=== PATIENT | female | born 1940 | race Caucasian/White ===

== ENCOUNTER → 2017-04-19 05:00 | Outpatient (REF) | payer MEDICARE, SELFPAY ==
[2017-04-19 08:24] LABS: Hematocrit 40.2 % (37-47); Hemoglobin 12.3 g/dl (12.0-15.0); Mean Corp Hgb Conc 30.6 g/gl (32-36); Mean Corpuscular Hgb 29.2 pg (27.0-32.0); Mean Corpuscular Volume 95.5 fL (81-99); Mean Platelet Vol. 9.3 fl (6.2-12.0); Platelet Count 247 K/mm3 (150-450); RBC Distribution Width CV 14.6 % (11.6-14.6); RBC Distribution Width SD 50.9 fl (35.1-43.9); Red Blood Count 4.21 M/mm3 (4.2-5.4); White Blood Count 5.7 K/mm3 (4.4-11.0)
[2017-04-19 08:31] LABS: Anion Gap 8 (5-15); BUN 18 mg/dL (7-18); BUN/Creat Ratio 33.7 RATIO (10-20); Calcium,Total 9.3 mg/dL (8.5-10.1); Chloride 99 mmol/L (98-107); Creatinine, Serum 0.53 mg/dL (0.55-1.02); EST Glomerular Filtration Rate 118 mL/min (>60); Est Glom Filt Rate - Afr Amer 143 mL/min (>60); Glucose 96 mg/dL (74-106); Potassium 3.2 mmol/L (3.5-5.1); Sodium Level 137 mmol/L (136-145)
[2017-04-19 08:36] LABS: Scan Indicated on CBC? Y/N NO
== END ==
LOC: OLS.ACW100 05:00
PROVIDERS: Visit Provider Internal Medicine
DX: I63.22 Cerebral infarction due to unspecified occlusion or stenosis of basilar artery (principal); I69.320 Aphasia following cerebral infarction; I69.351 Hemiplegia and hemiparesis following cerebral infarction affecting right dominant side
CPT/HCPCS: 36415; 80048; 85027

== ENCOUNTER → 2017-04-20 03:00 | Outpatient (REF) | payer MEDICARE, SELFPAY ==
[2017-04-20 07:39] LABS: Color, Urine Yellow (Yellow); Glucose, Dipstick Normal (Normal); Ketone-Dipstick Negative (Negative); Leukocyte Esterase-Dipstick 500 /ul (Negative); Nitrite-Dipstick Positive (Negative); Occult Blood-Urine 25 /ul (Negative); Protein-Dipstick 15 mg/dl (Negative); Urine Bilirubin Dipstick Negative (Negative); Urine Clarity Clear (Clear); Urine Urobilinogen Normal (Normal)
== END ==
LOC: OLS.ACW100 03:00
PROVIDERS: Visit Provider Internal Medicine
DX: I63.22 Cerebral infarction due to unspecified occlusion or stenosis of basilar artery (principal); N39.0 Urinary tract infection, site not specified; I69.320 Aphasia following cerebral infarction; I69.351 Hemiplegia and hemiparesis following cerebral infarction affecting right dominant side
CPT/HCPCS: 81002; 87077; 87086; 87088; 87186

== ENCOUNTER → 2017-05-09 13:14 | Outpatient (REF) | payer MEDICARE, SELFPAY ==
[2017-05-09 13:33] LABS: Color, Urine Yellow (Yellow); Glucose, Dipstick Normal (Normal); Ketone-Dipstick Negative (Negative); Leukocyte Esterase-Dipstick Negative /ul (Negative); Nitrite-Dipstick Negative (Negative); Occult Blood-Urine Negative /ul (Negative); Protein-Dipstick Negative (Negative); Specific Gravity, Urine 1.015 (1.002-1.030); Urine Bilirubin Dipstick Negative (Negative); Urine Clarity Cloudy (Clear); Urine Urobilinogen Normal (Normal)
== END ==
LOC: OLS.ACW200 13:14
PROVIDERS: Visit Provider Internal Medicine
DX: Z09 Encounter for follow-up examination after completed treatment for conditions other than malignant neoplasm (principal); Z87.440 Personal history of urinary (tract) infections
CPT/HCPCS: 81002; 87086; 87088

== ENCOUNTER → 2017-05-20 03:00 | Outpatient (REF) | payer MEDICARE, SELFPAY ==
[2017-05-20 08:36] LABS: Color, Urine Yellow (Yellow); Glucose, Dipstick Normal (Normal); Ketone-Dipstick Negative (Negative); Leukocyte Esterase-Dipstick Negative /ul (Negative); Nitrite-Dipstick Negative (Negative); Occult Blood-Urine Negative /ul (Negative); Protein-Dipstick Negative (Negative); Urine Bilirubin Dipstick Negative (Negative); Urine Clarity Sl. Cloudy (Clear); Urine Urobilinogen Normal (Normal)
== END ==
LOC: OLS.ACW200 03:00
PROVIDERS: Visit Provider Internal Medicine
DX: I63.22 Cerebral infarction due to unspecified occlusion or stenosis of basilar artery (principal); I69.320 Aphasia following cerebral infarction; I69.351 Hemiplegia and hemiparesis following cerebral infarction affecting right dominant side; R41.82 Altered mental status, unspecified
CPT/HCPCS: 81002; 87086; 87088

== ENCOUNTER → 2017-05-24 05:00 | Outpatient (REF) | payer MEDICARE, SELFPAY ==
[2017-05-24 08:06] LABS: Hematocrit 42.1 % (37-47); Hemoglobin 13.5 g/dl (12.0-15.0); Mean Corp Hgb Conc 32.1 g/gl (32-36); Mean Corpuscular Hgb 29.6 pg (27.0-32.0); Mean Corpuscular Volume 92.3 fL (81-99); Mean Platelet Vol. 9.7 fl (6.2-12.0); Platelet Count 246 K/mm3 (150-450); RBC Distribution Width CV 13.8 % (11.6-14.6); RBC Distribution Width SD 45.1 fl (35.1-43.9); Red Blood Count 4.56 M/mm3 (4.2-5.4); White Blood Count 6.6 K/mm3 (4.4-11.0)
[2017-05-24 08:07] LABS: Scan Indicated on CBC? Y/N NO
[2017-05-24 08:08] LABS: Anion Gap 9 (5-15); BUN 13 mg/dL (7-18); BUN/Creat Ratio 27.1 RATIO (10-20); Calcium,Total 9.1 mg/dL (8.5-10.1); Chloride 103 mmol/L (98-107); Creatinine, Serum 0.48 mg/dL (0.55-1.02); EST Glomerular Filtration Rate 134 mL/min (>60); Est Glom Filt Rate - Afr Amer 162 mL/min (>60); Glucose 81 mg/dL (74-106); Potassium 3.1 mmol/L (3.5-5.1); Sodium Level 141 mmol/L (136-145)
== END ==
LOC: OLS.ACW200 05:00
PROVIDERS: Visit Provider Internal Medicine
DX: I69.351 Hemiplegia and hemiparesis following cerebral infarction affecting right dominant side (principal); I69.320 Aphasia following cerebral infarction
CPT/HCPCS: 36415; 80048; 85027

== ENCOUNTER → 2017-05-31 05:00 | Outpatient (REF) | payer MEDICARE, SELFPAY ==
[2017-05-31 08:33] LABS: Color, Urine Yellow (Yellow); Glucose, Dipstick Normal (Normal); Ketone-Dipstick Negative (Negative); Leukocyte Esterase-Dipstick Negative /ul (Negative); Nitrite-Dipstick Negative (Negative); Occult Blood-Urine Negative /ul (Negative); Protein-Dipstick Negative (Negative); Urine Bilirubin Dipstick Negative (Negative); Urine Clarity Sl. Cloudy (Clear); Urine Urobilinogen Normal (Normal)
== END ==
LOC: OLS.ACW100 05:00
PROVIDERS: Visit Provider Internal Medicine
DX: I63.22 Cerebral infarction due to unspecified occlusion or stenosis of basilar artery (principal); I69.320 Aphasia following cerebral infarction; I69.351 Hemiplegia and hemiparesis following cerebral infarction affecting right dominant side
CPT/HCPCS: 81002; 87086; 87088

== ENCOUNTER → 2018-02-07 05:00 | Outpatient (REF) | payer MEDICARE, SELFPAY ==
[2018-02-07 09:12] LABS: BUN 26 mg/dL (7-18); Creatinine, Serum 0.66 mg/dL (0.55-1.02); Glucose 92 mg/dL (74-106)
[2018-02-07 09:13] LABS: Anion Gap 9 (5-15); BUN/Creat Ratio 39.3 RATIO (10-20); Chloride 106 mmol/L (98-107); EST Glomerular Filtration Rate 92 mL/min (>60); Est Glom Filt Rate - Afr Amer 111 mL/min (>60); Potassium 3.7 mmol/L (3.5-5.1); Sodium Level 144 mmol/L (136-145)
--- OUTSIDE RECORDS SUMMARY | 2018-03-25 23:39 | XMS RPT_ITS ---
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 / I69.351(ICD-10) 11/30/2017 Unknown Z09 - Encounter Spoljaric, Active [place] for follow-up [facility] examination after Hospital completed Repository treatment for conditions other than malignant neoplasm / Z09(ICD-10) 11/30/2017 Unknown Z87.440 - Spoljaric, Active Jerad Personal history [facility] (tract) Repository infections / Z87.440(ICD-10) PROCEDURES PROCEDURES No Procedure Records FoundRESULTS RESULTS URINALYSIS, ROUTINE Collected: 03/12/2018 Status: F Source: JERAD (DIPSTICK) 2:00 PM [facility] REPOSITORY Order Comment: How was Urine Obtained? CLEAN CATCH TYPE CODE TESTS RESULT OUT OF RANGE REFERENCE UNITS LAB L400.3000 Yellow COLOR Normal Yellow LAB L400.3050 Clear Normal CLARITY Sl. Cloudy LAB L400.3200 Normal mg/dl Normal GLUCOSE, UR Normal LAB L400.3300 Negative mg/dL Normal BILIRUBIN URINE Negative LAB L400.3400 Negative mg/dl Normal KETONE UR Negative LAB L400.3465 1.002-1.030 Normal SP.GR. DIPSTX 1.020 LAB L400.3550 5.0 - 8.0 pH UR Normal 6.0 LAB L400.3600 Negative mg/dl High PROT 15 DIPSTX LAB L400.3700 Normal mg/dl Normal UROBILI Normal LAB L400.3750 Negative Normal NITRITE UR Negative LAB L400.3780 Negative /ul High 10 OCCULT BLOOD-UR LAB L400.3800 Negative /ul High LEUK ESTERASE 100 Performed By: #### L400.2010 #### [facility] [address] [place], [place], [address] Observed: 03/12/2018 Status: F Source: [place] CULTURE, URINE 2:00 PM [facility] REPOSITORY COLLECTED IN [facility] Urine Culture #2 There are no CLSI standards for interpretation of this Drug/Organism combination. ORGANISM 1: Citrobacter freundii [place] Count 25,000-50,000 ORGANISM 2: Aerococcus urinae [place] Count >100,000 Citrobacter freundii: REACTION Cefazolin $ >=64 R Cefepime $ <=0.12 S Ceftazidime *NF <=1 S Ceftriaxone $ <=0.25 S Ciprofloxacin $ <=0.25 S Ertapenim $$$ <=0.12 S Gentamicin $ <=1 S Imipenem *NF <=0.25 S Levofloxacin $ <=0.12 S Nitrofurantoin $ <=16 S Piperacillin/Tazobactam $$ <=4 S Tobramycin $ <=1 S Trimethoprim/Sulfametho $ <=20 S (NF) indicates non-formulary drug at [facility]. Approval by Infectious Disease Specialist required before non-formulary drugs may be ordered and/or dispensed. Performed By: #### M100.0650 #### [facility] [address] [place], [address] BASIC METABOLIC Collected: 02/07/2018 Status: F Source: [place] PROFILE (BMP) 6:40 AM [facility] REPOSITORY Order Comment: 110-1 TYPE CODE TESTS RESULT OUT OF RANGE REFERENCE UNITS LAB L501.0100 74-106 mg/dL Normal GLU 92 Result Comment: Please note revised GLUCOSE reference range effective 2017. LAB L501.1000 7-18 mg/dL High BUN 26 LAB L501.1100 0.55-1.02 mg/dL Normal CREAT,SERUM 0.66 Result Comment: The validity of the calculated GFR AND GFRAA in patients over 70 years has not been determined. Clinical correlation is essential. LAB L501.1110 >60 mL/min Normal EST GFR 92 Result Comment: Non- GFR Calc LAB L501.1115 >60 mL/min Normal EST GFR - AA 111 Result Comment: GFR Calc LAB L501.1300 10-20 RATIO High BUN/CRE 39.3 LAB L501.2200 8.5-10.1 mg/dL CA Normal 9.0 LAB L501.5300 136-145 mmol/L NA Normal 144 LAB L501.5600 3.5-5.1 mmol/L K Normal 3.7 LAB L501.5900 98-107 mmol/L CL Normal 106 LAB L501.6100 21.0-32.0 mmol/L Normal CO2 29.0 LAB L501.6200 5-15 Normal GAP 9 Performed By: #### L500.2500 #### [facility] [address] [place], [place], [address] URINALYSIS, ROUTINE Collected: 05/31/2017 Status: F Source: JERAD (DIPSTICK) 12:00 AM [facility] REPOSITORY Order Comment: How was Urine Obtained? CLEAN CATCH TYPE CODE TESTS RESULT OUT OF RANGE REFERENCE UNITS LAB L400.3000 Yellow COLOR Normal Yellow LAB L400.3050 Clear Normal CLARITY Sl. Cloudy LAB L400.3200 Normal mg/dl Normal GLUCOSE, UR Normal LAB L400.3300 Negative mg/dL Normal BILIRUBIN URINE Negative LAB L400.3400 Negative mg/dl Normal KETONE UR Negative LAB L400.3465 1.002-1.030 Normal SP.GR. DIPSTX 1.010 LAB L400.3550 5.0 - 8.0 pH UR Normal 7.0 LAB L400.3600 Negative mg/dl PROT Normal DIPSTX Negative LAB L400.3700 Normal mg/dl Normal UROBILI Normal LAB L400.3750 Negative Normal NITRITE UR Negative LAB L400.3780 Negative /ul Normal OCCULT BLOOD-UR Negative LAB L400.3800 Negative /ul LEUK Normal ESTERASE Negative Performed By: #### L400.2010 #### [facility] [address] [place], [place], [address] Observed: 05/31/2017 Status: F Source: [place] CULTURE, URINE 12:00 AM [facility] REPOSITORY Urine Culture ORGANISM 1: Mixed Gram Positive Organisms [place] Count 11,000-25,000 MIX CULTURE Mixed contaminants. Submit a new specimen if indicated. Performed By: #### M100.0650 #### [facility] [address] [place], [place], [address] CBC-COMPLETE BLOOD CNT Collected: 05/24/2017 Status: F Source: [place]ER[place] NO DIFF 5:40 AM [facility] REPOSITORY Order Comment: ROOM 102-1 TYPE CODE TESTS RESULT OUT OF RANGE REFERENCE UNITS LAB L100.1000 4.4-11.0 K/mm3 Normal WBC 6.6 LAB L100.1200 4.2-5.4 M/mm3 Normal RBC 4.56 LAB L100.1300 12.0-15.0 g/dl Normal HGB 13.5 LAB L100.1400 37-47 % Normal HCT 42.1 LAB L100.1500 81-99 fL Normal MCV 92.3 LAB L100.1600 27.0-32.0 pg Normal MCH 29.6 LAB L100.1700 32-36 g/gl Normal MCHC 32.1 LAB L100.1810 11.6-14.6 % Normal RDW CV 13.8 LAB L100.1820 35.1-43.9 fl High RDW SD 45.1 LAB L100.1900 150-450 K/mm3 Normal PLT 246 LAB L100.2000 6.2-12.0 fl Normal MPV 9.7 Performed By: #### L100.0500 #### [facility] [address] [place], [place], [address] BASIC METABOLIC Collected: 05/24/2017 Status: F Source: [place]ER[place] PROFILE (BMP) 5:40 AM [facility] REPOSITORY Order Comment: ROOM 102-1 TYPE CODE TESTS RESULT OUT OF RANGE REFERENCE UNITS LAB L501.0100 74-106 mg/dL Normal GLU 81 Result Comment: Please note revised GLUCOSE reference range effective 2017. LAB L501.1000 7-18 mg/dL Normal BUN 13 LAB L501.1100 0.55-1.02 mg/dL Low CREAT,SERUM 0.48 Result Comment: The validity of the calculated GFR AND GFRAA in patients over 70 years has not been determined. Clinical correlation is essential. LAB L501.1110 >60 mL/min Normal EST GFR 134 Result Comment: Non- GFR Calc LAB L501.1115 >60 mL/min Normal EST GFR - AA 162 Result Comment: GFR Calc LAB L501.1300 10-20 RATIO High BUN/CRE 27.1 LAB L501.2200 8.5-10.1 mg/dL CA Normal 9.1 LAB L501.5300 136-145 mmol/L NA Normal 141 LAB L501.5600 3.5-5.1 mmol/L Low K 3.1 LAB L501.5900 98-107 mmol/L CL Normal 103 LAB L501.6100 21.0-32.0 mmol/L Normal CO2 29.0 LAB L501.6200 5-15 Normal GAP 9 Performed By: #### L500.2500 #### [facility] [place], [address] URINALYSIS, ROUTINE Collected: 05/20/2017 Status: F Source: JERAD (DIPSTICK) 3:00 AM [facility] REPOSITORY Order Comment: How was Urine Obtained? CLEAN CATCH TYPE CODE TESTS RESULT OUT OF RANGE REFERENCE UNITS LAB L400.3000 Yellow COLOR Normal Yellow LAB L400.3050 Clear Normal CLARITY Sl. Cloudy LAB L400.3200 Normal mg/dl Normal GLUCOSE, UR Normal LAB L400.3300 Negative mg/dL Normal BILIRUBIN URINE Negative LAB L400.3400 Negative mg/dl Normal KETONE UR Negative LAB L400.3465 1.002-1.030 Normal SP.GR. DIPSTX 1.010 LAB L400.3550 5.0 - 8.0 pH UR Normal 6.0 LAB L400.3600 Negative mg/dl PROT Normal DIPSTX Negative LAB L400.3700 Normal mg/dl Normal UROBILI Normal LAB L400.3750 Negative Normal NITRITE UR Negative LAB L400.3780 Negative /ul Normal OCCULT BLOOD-UR Negative LAB L400.3800 Negative /ul LEUK Normal ESTERASE Negative Performed By: #### L400.2010 #### [facility] [address] [place], [place], [address] Observed: 05/20/2017 Status: F Source: [place] CULTURE, URINE 3:00 AM [facility] REPOSITORY Urine Culture ORGANISM 1: Mixed Gram Positive Organisms [place] Count 11,000-25,000 MIX CULTURE Mixed contaminants. Submit a new specimen if indicated. Performed By: #### M100.0650 #### [facility] [place], [address] URINALYSIS, ROUTINE Collected: 05/09/2017 Status: F Source: JERAD (DIPSTICK) 12:00 AM [facility] REPOSITORY Order Comment: How was Urine Obtained? CLEAN CATCH TYPE CODE TESTS RESULT OUT OF RANGE REFERENCE UNITS LAB L400.3000 Yellow COLOR Normal Yellow LAB L400.3050 Clear Normal CLARITY Cloudy LAB L400.3200 Normal mg/dl Normal GLUCOSE, UR Normal LAB L400.3300 Negative mg/dL Normal BILIRUBIN URINE Negative LAB L400.3400 Negative mg/dl Normal KETONE UR Negative LAB L400.3465 1.002-1.030 Normal SP.GR. DIPSTX 1.015 LAB L400.3550 5.0 - 8.0 pH UR Normal 6.0 LAB L400.3600 Negative mg/dl PROT Normal DIPSTX Negative LAB L400.3700 Normal mg/dl Normal UROBILI Normal LAB L400.3750 Negative Normal NITRITE UR Negative LAB L400.3780 Negative /ul Normal OCCULT BLOOD-UR Negative LAB L400.3800 Negative /ul LEUK Normal ESTERASE Negative Performed By: #### L400.2010 #### [facility] [address] [facility] [place], [address] Observed: 05/09/2017 Status: F Source: [place]ER[place] CULTURE, URINE 12:00 AM [facility] REPOSITORY Urine Culture ORGANISM 1: Mixed Gram Positive Organisms [place] Count 25,000-50,000 MIX CULTURE Mixed contaminants. Submit a new specimen if indicated. Performed By: #### M100.0650 #### [facility] [address] [place], [address] URINALYSIS, ROUTINE Collected: 04/20/2017 Status: F Source: JERAD (DIPSTICK) 3:00 AM [facility] REPOSITORY Order Comment: How was Urine Obtained? CLEAN CATCH TYPE CODE TESTS RESULT OUT OF RANGE REFERENCE UNITS LAB L400.3000 Yellow COLOR Normal Yellow LAB L400.3050 Clear Normal CLARITY Clear LAB L400.3200 Normal mg/dl Normal GLUCOSE, UR Normal LAB L400.3300 Negative mg/dL Normal BILIRUBIN URINE Negative LAB L400.3400 Negative mg/dl Normal KETONE UR Negative LAB L400.3465 1.002-1.030 Normal SP.GR. DIPSTX 1.020 LAB L400.3550 5.0 - 8.0 pH UR Normal 6.0 LAB L400.3600 Negative mg/dl High PROT 15 DIPSTX LAB L400.3700 Normal mg/dl Normal UROBILI Normal LAB L400.3750 Negative High NITRITE UR Positive LAB L400.3780 Negative /ul High 25 OCCULT BLOOD-UR LAB L400.3800 Negative /ul High [place] ESTERASE 500 Performed By: #### L400.2011 #### [facility] [address] [place], [address] Observed: 04/20/2017 Status: F Source: [place]ER[place] CULTURE, URINE 3:00 AM [facility] REPOSITORY Urine Culture * This is an amended result. * A prior result that was reported as final has been changed. 05/10/17 1516 by JUAN J Previously reported as: SALMONELLA INFANTIS IDENTIFICATION CONFIRMED BY [facility]. RESULTS CALLED TO DEVIN CARVALHO 04/23/17 0818 Meredith Levine. REPORT READ BACK BY SAME. ORGANISM 1: Salmonella Species [place] Count >100,000 Salmonella Species: REACTION Amoxacillin/Clavulanic Acid $ >=32 R Ampicillin $ >=32 R Cefepime $ <=1 S Ceftriaxone $ >=64 R Ciprofloxacin $ 0.5 S Levofloxacin $ 2 S Tobramycin $ <=1 R Trimethoprim/Sulfametho $ <=20 S (NF) indicates non-formulary drug at [facility]. Approval by Infectious Disease Specialist required before non-formulary drugs may be ordered and/or dispensed. Performed By: #### M100.0650 #### [facility] [address] [place], [place], [address] BASIC METABOLIC Collected: 04/19/2017 Status: F Source: JERAD PROFILE (BMP) 5:55 AM [facility] REPOSITORY Order Comment: ROOM 114-1 TYPE CODE TESTS RESULT OUT OF RANGE REFERENCE UNITS LAB L501.0100 74-106 mg/dL Normal GLU 96 Result Comment: Please note revised GLUCOSE reference range effective 2017. LAB L501.1000 7-18 mg/dL Normal BUN 18 LAB L501.1100 0.55-1.02 mg/dL Low CREAT,SERUM 0.53 Result Comment: The validity of the calculated GFR AND GFRAA in patients over 70 years has not been determined. Clinical correlation is essential. LAB L501.1110 >60 mL/min Normal EST GFR 118 Result Comment: Non- GFR Calc LAB L501.1115 >60 mL/min Normal EST GFR - AA 143 Result Comment: GFR Calc LAB L501.1300 10-20 RATIO High BUN/CRE 33.7 LAB L501.2200 8.5-10.1 mg/dL CA Normal 9.3 LAB L501.5300 136-145 mmol/L NA Normal 137 LAB L501.5600 3.5-5.1 mmol/L Low K 3.2 LAB L501.5900 98-107 mmol/L CL Normal 99 LAB L501.6100 21.0-32.0 mmol/L Normal CO2 30.0 LAB L501.6200 5-15 Normal GAP 8 Performed By: #### L500.2500 #### [facility] [address] [place], [address] CBC-COMPLETE BLOOD CNT Collected: 04/19/2017 Status: F Source: [place]ER[place] NO DIFF 5:55 AM [facility] REPOSITORY Order Comment: ROOM 114-1 TYPE CODE TESTS RESULT OUT OF RANGE REFERENCE UNITS LAB L100.1000 4.4-11.0 K/mm3 Normal WBC 5.7 LAB L100.1200 4.2-5.4 M/mm3 Normal RBC 4.21 LAB L100.1300 12.0-15.0 g/dl Normal HGB 12.3 LAB L100.1400 37-47 % Normal HCT 40.2 LAB L100.1500 81-99 fL Normal MCV 95.5 LAB L100.1600 27.0-32.0 pg Normal MCH 29.2 LAB L100.1700 32-36 g/gl Low MCHC 30.6 LAB L100.1810 11.6-14.6 % Normal RDW CV 14.6 LAB L100.1820 35.1-43.9 fl High RDW SD 50.9 LAB L100.1900 150-450 K/mm3 Normal PLT 247 LAB L100.2000 6.2-12.0 fl Normal MPV 9.3 Performed By: #### L100.0500 #### [facility] [address] [place], [address] ALLERGIES ALLERGIES DATE TYPE / CODE NAME / CODE REACTION SEVERITY SOURCE 02/15/2017 Drug diphenhydram Unknown Unknown [facility] Allergy/4160 ine/[id number] [facility] 38911(SNOMED 87(RXNORM) Repository [place]) ENCOUNTERS ENCOUNTERS ADMIT/DISCHARGE ACCOUNT ADMITTING ENCOUNTER LOCATION SOURCE NUMBER CLASS 03/12/2018 [id number] [place] [facility] ing:OLS.ACW10 Repository 0 02/07/2018 [id number] [place] [facility] ing:OLS.ACW10 Repository 0 05/31/2017 [id number] Ambulatory [place] [facility] [facility] ing:OLS.ACW10 Repository 0 05/30/2017 [id number] Ambulatory [place] [facility] ing:OLS.ACW20 Repository 0 05/24/2017 [id number] [place] [facility] ing:OLS.ACW20 Repository 0 05/20/2017 [id number] Ambulatory [place] [facility] ing:OLS.ACW20 Repository 0 05/09/2017 [id number] Ambulatory [place] [facility] ing:OLS.ACW20 Repository 0 04/20/2017 [id number] Amb[place] [facility] ing:OLS.ACW10 Repository 0 04/19/2017 [id number] Ambulatory [place] [facility] [facility] ing:OLS.ACW10 Repository 0 PAYERS PAYERS ENCOUNTER GUARANTOR PAYER SUBSCRIBER SOURCE 03/12/2018 Isma Rodriguez Primary NOT GIVENUNK [place] Insurance:SELF PAY [facility], Number: Effective Repository [place] [address]Qiu: (330) Date:2018-03-12 [phone] () 02/07/2018 Isma Forte147 Primary Isma J [place] Insurance:ANTHEM YarmanDOB: [facility] [id number] [place] [address]Zri: (330) Number: [phone] () [id number] e Date:2832-46-02[address] [place] [address]CN: 02/07/2018 Secondary NOT GIVENUNK [place] Insurance:SELF PAY [facility] Number: Effective Repository Date:2018-02-07 05/31/2017 Isma Forte147 Primary Isma J [place] Insurance:[facility]M [facility] [id number] [place] [address]Bfw: (330) Number: [phone] () [id number] e Date:1048-40-87YI [address] [place] [address]QN: 05/31/2017 Secondary NOT GIVENUNK [place] Insurance:SELF PAY [facility] Number: Effective Repository Date:2017-05-31 05/30/2017 ISMA [id number] Primary [facility]IVENUNK [facility]SELF [facility] [place] [address]Ecy: (330) [facility] [phone] (HP) Number: Effective Repository Date:2017-05-30 05/24/2017 Isma [id number] Primary Isma J Jer[place] Insurance:ANTHEM LizzetteOB: [facility] [id number] [place] [address]Jvi: Number: [phone] [id number] () e Date:5640-58-13SM [address] [place] [address]XQ: 05/24/2017 Secondary NOT GIVENUNK [place] Insurance:SELF PAY [facility] Number: Effective Repository Date:2017-05-24 05/20/2017 Ismajanis [id number] Primary Isma J [place] Insurance:ANTHEMMA CrockerOB: [facility] [id number] Rep[place] [address]Moq: Number: [phone] [id number] (HP) e Date:1969-81-15RJ [address] [place] [address]UC: 05/20/2017 Secondary NOT GIVENUNK Jerad Insurance:SELF PAY [facility] Number: Effective Repository Date:2017-05-20 05/09/2017 Isma Violet [id number] Primary Isma J [place] Insurance:SILVIA CrockerOB: [facility] [id number] [place] [address]Umy: (330) Number: [phone] () [id number] e Date:9175-92-93ST [address] [place] [address]YJ: 05/09/2017 Secondary NOT GIVENUNK [place] Insurance:SELF PAY [facility] Number: Effective Repository Date:2017-05-09 04/20/2017 Isma J [id number] Primary Isma J [place] Insurance:SILVIA CrockerOB: [facility] [id number] [facility] [address]Gsn: Number: [phone] [id number] (HP) e Date:1939-34-72ZM [address] [place] [address] [place] [address]WM: 04/20/2017 Secondary NOT GIVENUNK [place] Insurance:SELF PAY [facility] Number: Effective Repository Date:2017-04-20 04/19/2017 Ismajanis [id number] Primary Isma J [place] Insurance:SILVIA CrockerOB: [facility] [id number] [place] [address]Upy: Number: [phone] [id number] (HP) e Date:4461-54-41[address], [place] [address]CC: 04/19/2017 Secondary NOT GIVENUNK [place] Insurance:SELF PAY [facility] Number: Effective Repository Date:2017-04-19
== END ==
LOC: OLS.ACW100 05:00
PROVIDERS: Visit Provider Internal Medicine
DX: I69.320 Aphasia following cerebral infarction (principal); I69.351 Hemiplegia and hemiparesis following cerebral infarction affecting right dominant side
CPT/HCPCS: 36415; 80048

== ENCOUNTER → 2018-03-12 14:00 | Outpatient (REF) | payer MEDICARE, SELFPAY ==
[2018-03-13 10:10] LABS: Color, Urine Yellow (Yellow); Glucose, Dipstick Normal (Normal); Ketone-Dipstick Negative (Negative); Leukocyte Esterase-Dipstick 100 /ul (Negative); Nitrite-Dipstick Negative (Negative); Occult Blood-Urine 10 /ul (Negative); Protein-Dipstick 15 mg/dl (Negative); Urine Bilirubin Dipstick Negative (Negative); Urine Clarity Sl. Cloudy (Clear); Urine Urobilinogen Normal (Normal)
--- OUTSIDE RECORDS SUMMARY | 2018-05-18 01:31 | XMS RPT_ITS ---
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 / I69.351(ICD-10) 11/30/2017 Unknown Z09 - Encounter Spoljaric, Active [place] for follow-up [facility] examination after Hospital completed Repository treatment for conditions other than malignant neoplasm / Z09(ICD-10) 11/30/2017 Unknown Z87.440 - Spoljaric, Active [place] Personal history [facility] (tract) Repository infections / Z87.440(ICD-10) PROCEDURES PROCEDURES No Procedure Records FoundRESULTS RESULTS URINALYSIS, ROUTINE Collected: 03/12/2018 Status: F Source: JERAD (DIPSTICK) 2:00 PM [facility] Order Comment: How was Urine Obtained? [...] ESTERASE 100 Performed By: #### L400.2010 #### [facility] [address] [place], [place], [address] Observed: 03/12/2018 Status: F Source: BETHEL CULTURE, URINE 2:00 PM [facility] COLLECTED IN [facility] Urine Culture #2 There are no CLSI standards for interpretation of this Drug/Organism combination. ORGANISM 1: Citrobacter freundii [place] Count 25,000-50,000 ORGANISM 2: Aerococcus urinae [place] Count >100,000 Citrobacter freundii: REACTION Cefazolin $ >=64 R Cefepime $ <=0.12 S Ceftazidime *NF <=1 S Ceftriaxone $ <=0.25 S Ciprofloxacin $ <=0.25 S Ertapenim $$$ <=0.12 S Gentamicin $ <=1 S Imipenem *NF <=0.25 S Levofloxacin $ <=0.12 S Nitrofurantoin $ <=16 S Piperacillin/Tazobactam $$ <=4 S Tobramycin $ <=1 S Trimethoprim/Sulfametho $ <=20 S (NF) indicates non-formulary drug at [facility]. Approval by Infectious Disease Specialist required before non-formulary drugs may be ordered and/or dispensed. Performed By: #### M100.0650 #### [facility] [address] [place], [address] BASIC METABOLIC Collected: 02/07/2018 Status: F Source: JERAD PROFILE (BMP) 6:40 AM [facility] Order Comment: 110-1 TYPE CODE TESTS [...] GAP 9 Performed By: #### L500.2500 #### [facility] [address] [place], [place], [address] URINALYSIS, ROUTINE Collected: 05/31/2017 Status: F Source: JERAD (DIPSTICK) 12:00 AM [facility] Order Comment: How was Urine Obtained? [...] ESTERASE Negative Performed By: #### L400.2010 #### [facility] [address] [place], [place], [address] Observed: 05/31/2017 Status: F Source: JERAD CULTURE, URINE 12:00 AM [facility] Urine Culture ORGANISM 1: Mixed Gram Positive Organisms [place] Count 11,000-25,000 MIX CULTURE Mixed contaminants. Submit a new specimen if indicated. Performed By: #### M100.0650 #### [facility] [address] [place], [place], [address] CBC-COMPLETE BLOOD CNT Collected: 05/24/2017 Status: F Source: JERAD NO DIFF 5:40 AM [facility] Order Comment: ROOM 102-1 TYPE CODE [...] MPV 9.7 Performed By: #### L100.0500 #### [facility] [address] [place], [place], [address] BASIC METABOLIC Collected: 05/24/2017 Status: F Source: JERAD PROFILE (BMP) 5:40 AM [facility] Order Comment: ROOM 102-1 TYPE CODE [...] GAP 9 Performed By: #### L500.2500 #### [facility] [address], [address] URINALYSIS, ROUTINE Collected: 05/20/2017 Status: F Source: JERAD (DIPSTICK) 3:00 AM [facility] Order Comment: How was Urine Obtained? [...] ESTERASE Negative Performed By: #### L400.2010 #### [facility] [address] [place], [place], [address] Observed: 05/20/2017 Status: F Source: JERAD CULTURE, URINE 3:00 AM [facility] Urine Culture ORGANISM 1: Mixed Gram Positive Organisms [place] Count 11,000-25,000 MIX CULTURE Mixed contaminants. Submit a new specimen if indicated. Performed By: #### M100.0650 #### [facility] [place], [address] URINALYSIS, ROUTINE Collected: 05/09/2017 Status: F Source: JERAD (DIPSTICK) 12:00 AM [facility] Order Comment: How was Urine Obtained? [...] ESTERASE Negative Performed By: #### L400.2010 #### [facility] [address] [facility], [address] Observed: 05/09/2017 Status: F Source: JERAD CULTURE, URINE 12:00 AM [facility] Urine Culture ORGANISM 1: Mixed Gram Positive Organisms [place] Count 25,000-50,000 MIX CULTURE Mixed contaminants. Submit a new specimen if indicated. Performed By: #### M100.0650 #### [facility] [address] [place], [address] URINALYSIS, ROUTINE Collected: 04/20/2017 Status: F Source: JERAD (DIPSTICK) 3:00 AM [facility] Order Comment: How was Urine Obtained? [...] ESTERASE 500 Performed By: #### L400.2011 #### [facility] [address] [place], [address] Observed: 04/20/2017 Status: F Source: JERAD CULTURE, URINE 3:00 AM [facility] Urine Culture * This is an amended result. * A prior result that was reported as final has been changed. 05/10/17 1516 by JUAN J Previously reported as: SALMONELLA INFANTIS IDENTIFICATION CONFIRMED BY [facility]. RESULTS CALLED TO DEVIN CARVALHO 04/23/17 0818 Meredith Levine. REPORT READ BACK BY SAME. ORGANISM 1: Salmonella Species [place] Count >100,000 Salmonella Species: REACTION Amoxacillin/Clavulanic Acid $ >=32 R Ampicillin $ >=32 R Cefepime $ <=1 S Ceftriaxone $ >=64 R Ciprofloxacin $ 0.5 S Levofloxacin $ 2 S Tobramycin $ <=1 R Trimethoprim/Sulfametho $ <=20 S (NF) indicates non-formulary drug at [facility]. Approval by Infectious Disease Specialist required before non-formulary drugs may be ordered and/or dispensed. Performed By: #### M100.0650 #### [facility] [address] [place], [place], [address] BASIC METABOLIC Collected: 04/19/2017 Status: F Source: JERAD PROFILE (BMP) 5:55 AM [facility] Order Comment: ROOM 114-1 TYPE CODE [...] GAP 8 Performed By: #### L500.2500 #### [facility] [address] [place], [address] CBC-COMPLETE BLOOD CNT Collected: 04/19/2017 Status: F Source: JERAD NO DIFF 5:55 AM [facility] Order Comment: ROOM 114-1 TYPE CODE [...] MPV 9.3 Performed By: #### L100.0500 #### [facility] [address] [place], [address] ALLERGIES ALLERGIES DATE TYPE / CODE NAME / CODE REACTION SEVERITY SOURCE 02/15/2017 Drug diphenhydram Unknown Unknown [facility] Allergy/4160 ine/[id number] [facility] 24495(SNOMED 87(RXNORM) Repository [place]) ENCOUNTERS ENCOUNTERS ADMIT/DISCHARGE ACCOUNT ADMITTING ENCOUNTER LOCATION SOURCE NUMBER CLASS 03/12/2018 [id number] Ambulatory [place] 5 [facility] ing:OLS.ACW10 Repository 0 02/07/2018 [id number] Ambulatory [place] 9 [facility] ing:OLS.ACW10 Repository 0 05/31/2017 [id number] Ambulatory [place] 2 [facility] ing:OLS.ACW10 Repository 0 05/30/2017 [id number] Ambulatory [place] 7 [facility] ing:OLS.ACW20 Repository 0 05/24/2017 [id number] Ambulatory [place] 5 [facility] ing:OLS.ACW20 Repository 0 05/20/2017 [id number] Ambulatory [place] 4 [facility] ing:OLS.ACW20 Repository 0 05/09/2017 [id number] Ambulatory [place] 8 [facility] ing:OLS.ACW20 Repository 0 04/20/2017 [id number] Ambulatory [place] 8 [facility] ing:OLS.ACW10 Repository 0 04/19/2017 [id number] Ambulatory [place] 8 [facility] ing:OLS.ACW10 Repository 0 PAYERS PAYERS ENCOUNTER GUARANTOR PAYER SUBSCRIBER SOURCE 03/12/2018 Isma Rodriguez Primary NOT GIVENUNK [place]STINA Insurance:SELF PAY [facility], Number: Effective [place]ository [place] [address]Wex: (330) Date:2018-03-12 [phone] () 02/07/2018 Isma Forte147 Primary Isma J [place] Insurance:ANTHEM YarmanDOB: Community [facility] [id number] [place] [place] [address]Ayh: (330) Number: [phone] () [id number] e Date:9064-81-79JD [address] [place] [address]EX: 02/07/2018 Secondary NOT GIVENUNK [place] Insurance:SELF PAY [facility] Number: Effective Repository Date:2018-02-07 05/31/2017 Isma Forte147 Primary Isma J [place] Insurance:ANTHEM [facility] [id number] Community Hospital [place] [address]Fcb: (330) Number: [phone] () [id number] e Date:4104-45-90SI [address] [place] [address]58[address]LI: 05/31/2017 Secondary NOT GIVENUNK [place] Insurance:SELF PAY [facility] Number: Effective Repository Date:2017-05-31 05/30/2017 ISMA FORTE129 Primary NOT GIVENUNK [place] [facility]SELF [facility] [place] [address]Ocx: (330) [facility] [phone] (HP) Number: Effective Repository Date:2017-05-30 05/24/2017 Isma [id number] Primary Isma J Jer[place] Insurance:ANTHEM LizzetteOB: Community [facility] [id number] Community [facility] [place]ository [place] [address]Zze: Number: [phone] [id number] () e Date:0880-36-56JJ [address] [place] [address] 109[address]KD: 05/24/2017 Secondary NOT GIVENUNK [place] Insurance:SELF PAY [facility] Number: Effective Repository Date:2017-05-24 05/20/2017 Ismajanis [id number] Primary Isma J [place] Insurance:ANTHEMMA CrockerOB: Community [facility] [id number] Community Hospital [place] [address]Uyy: Number: [phone] [id number] (HP) e Date:4391-62-03FH [address] [place] [address]PL: 05/20/2017 Secondary NOT GIVENUNK [place] Insurance:SELF PAY [facility] Number: Effective Repository Date:2017-05-20 05/09/2017 Isma Violet [id number] Primary Isma J [place] Insurance:SILVIA CrockerOB: Community [facility] [id number] Community Hospital [place] [address]Syf: (330) Number: [phone] () [id number] e Date:7605-86-83LU [address] [place] [address]WP: 05/09/2017 Secondary NOT GIVENUNK [place] Insurance:SELF PAY [facility] Number: Effective Repository Date:2017-05-09 04/20/2017 Isma J [id number] Primary Isma J [place] Insurance:SILVIA CrockerOB: Community [facility] [id number] Health [facility] [address]Aqb: Number: [phone] [id number] (HP) e Date:4532-01-64TX [address] [place] [address] [place] [address]BV: 04/20/2017 Secondary NOT GIVENUNK [place] Insurance:SELF PAY [facility] Number: Effective Repository Date:2017-04-20 04/19/2017 Ismajanis [id number] Primary Isma J Jer[place] MONTR[place] Insurance:SILVIA CrockerOB: Community [facility] [id number] Community Hospital [place] [address]Qnt: Number: [phone] [id number] (HP) e Date:8913-38-12[address], [place] [address]ED: 04/19/2017 Secondary NOT GIVENUNK [place] Insurance:SELF PAY [facility] Number: Effective Repository Date:2017-04-19
== END ==
LOC: OLS.ACW100 14:00
PROVIDERS: Visit Provider Internal Medicine
DX: I63.22 Cerebral infarction due to unspecified occlusion or stenosis of basilar artery (principal); I69.320 Aphasia following cerebral infarction; I69.351 Hemiplegia and hemiparesis following cerebral infarction affecting right dominant side
CPT/HCPCS: 81002; 87077; 87086; 87088; 87186

== ENCOUNTER → 2018-05-17 05:00 | Outpatient (REF) | payer MEDICARE, SELFPAY ==
[2018-05-17 08:22] LABS: Anion Gap 4 (5-15); BUN 22 mg/dL (7-18); Calcium,Total 8.9 mg/dL (8.5-10.1); Chloride 104 mmol/L (98-107); Creatinine, Serum 0.85 mg/dL (0.55-1.02); EST Glomerular Filtration Rate 69 mL/min (>60); Est Glom Filt Rate - Afr Amer 84 mL/min (>60); Glucose 105 mg/dL (74-106); Sodium Level 137 mmol/L (136-145)
== END ==
LOC: OLS.ACW100 05:00
PROVIDERS: Visit Provider Internal Medicine
DX: I63.22 Cerebral infarction due to unspecified occlusion or stenosis of basilar artery (principal); I69.320 Aphasia following cerebral infarction; I69.351 Hemiplegia and hemiparesis following cerebral infarction affecting right dominant side
CPT/HCPCS: 36415; 80048

== ENCOUNTER → 2018-06-24 04:00 | Outpatient (REF) | payer MEDICARE, SELFPAY ==
[2018-06-24 09:34] LABS: Anion Gap 9 (5-15); BUN 21 mg/dL (7-18); BUN/Creat Ratio 31.1 RATIO (10-20); Calcium,Total 9.1 mg/dL (8.5-10.1); Chloride 105 mmol/L (98-107); Creatinine, Serum 0.68 mg/dL (0.55-1.02); EST Glomerular Filtration Rate 90 mL/min (>60); Est Glom Filt Rate - Afr Amer 108 mL/min (>60); Glucose 102 mg/dL (74-106); Potassium 3.6 mmol/L (3.5-5.1); Sodium Level 141 mmol/L (136-145)
== END ==
LOC: OLS.ACW100 04:00
PROVIDERS: Visit Provider Internal Medicine
DX: I63.22 Cerebral infarction due to unspecified occlusion or stenosis of basilar artery (principal); I69.320 Aphasia following cerebral infarction; I69.351 Hemiplegia and hemiparesis following cerebral infarction affecting right dominant side
CPT/HCPCS: 36415; 80048

== ENCOUNTER → 2018-12-23 05:00 | Outpatient (REF) | payer MEDICARE, SELFPAY ==
[2018-12-23 08:01] LABS: Anion Gap 7 (5-15); BUN 25 mg/dL (7-18); BUN/Creat Ratio 39.9 RATIO (10-20); Calcium,Total 8.8 mg/dL (8.5-10.1); Chloride 108 mmol/L (98-107); Creatinine, Serum 0.63 mg/dL (0.55-1.02); EST Glomerular Filtration Rate 98 mL/min (>60); Est Glom Filt Rate - Afr Amer 118 mL/min (>60); Glucose 113 mg/dL (74-106); Sodium Level 141 mmol/L (136-145)
== END ==
LOC: OLS.ACW100 05:00
PROVIDERS: Visit Provider Internal Medicine
DX: I63.22 Cerebral infarction due to unspecified occlusion or stenosis of basilar artery (principal); I69.320 Aphasia following cerebral infarction; I69.351 Hemiplegia and hemiparesis following cerebral infarction affecting right dominant side
CPT/HCPCS: 36415; 80048

== ENCOUNTER → 2019-06-23 05:00 | Outpatient (REF) | payer MEDICARE, SELFPAY ==
[2019-06-23 08:20] LABS: Anion Gap 6 (5-15); BUN 25 mg/dL (7-18); BUN/Creat Ratio 35.3 RATIO (10-20); Calcium,Total 9.2 mg/dL (8.5-10.1); Chloride 105 mmol/L (98-107); Creatinine, Serum 0.71 mg/dL (0.55-1.02); EST Glomerular Filtration Rate 85 mL/min (>60); Est Glom Filt Rate - Afr Amer 102 mL/min (>60); Glucose 107 mg/dL (74-106); Potassium 3.8 mmol/L (3.5-5.1); Sodium Level 138 mmol/L (136-145)
== END ==
LOC: OLS.ACW100 05:00
PROVIDERS: Visit Provider Internal Medicine
DX: I63.22 Cerebral infarction due to unspecified occlusion or stenosis of basilar artery (principal); I69.320 Aphasia following cerebral infarction; I69.351 Hemiplegia and hemiparesis following cerebral infarction affecting right dominant side
CPT/HCPCS: 36415; 80048

== ENCOUNTER → 2019-08-14 07:40 | Outpatient (REF) | payer MEDICARE, SELFPAY ==
[2019-08-14 09:02] LABS: ALB/GLOB Ratio 0.8 RATIO (0.9-2.4); AST(SGOT) 19 U/L (15-37); Alanine Aminotransfer ALT/SGPT 30 U/L (13-56); Albumin, Serum 3.1 g/dL (3.2-5.0); Alkaline Phosphatase 131 U/L (45-117); Anion Gap 7 (5-15); BUN 17 mg/dL (7-18); BUN/Creat Ratio 25.4 RATIO (10-20); Calcium,Total 9.1 mg/dL (8.5-10.1); Chloride 103 mmol/L (98-107); Creatinine, Serum 0.67 mg/dL (0.55-1.02); EST Glomerular Filtration Rate 90 mL/min (>60); Est Glom Filt Rate - Afr Amer 109 mL/min (>60); Globulin 3.9 g/dL (2.2-4.2); Glucose 105 mg/dL (74-106); Potassium 3.7 mmol/L (3.5-5.1); Sodium Level 138 mmol/L (136-145)
== END ==
LOC: OLS.ACW100 07:40
PROVIDERS: Visit Provider Internal Medicine
DX: I63.22 Cerebral infarction due to unspecified occlusion or stenosis of basilar artery (principal); I69.320 Aphasia following cerebral infarction; I69.351 Hemiplegia and hemiparesis following cerebral infarction affecting right dominant side
CPT/HCPCS: 36415; 80053

== ENCOUNTER → 2019-10-30 05:00 | Outpatient (REF) | payer MEDICARE, SELFPAY ==
[2019-10-30 08:10] LABS: Anion Gap 6 (5-15); BUN 24 mg/dL (7-18); BUN/Creat Ratio 36.5 RATIO (10-20); Calcium,Total 8.9 mg/dL (8.5-10.1); Chloride 103 mmol/L (98-107); Creatinine, Serum 0.66 mg/dL (0.55-1.02); EST Glomerular Filtration Rate 92 mL/min (>60); Est Glom Filt Rate - Afr Amer 112 mL/min (>60); Glucose 95 mg/dL (74-106); Potassium 3.8 mmol/L (3.5-5.1); Sodium Level 136 mmol/L (136-145)
== END ==
LOC: OLS.ACW100 05:00
PROVIDERS: Visit Provider Internal Medicine
DX: I63.22 Cerebral infarction due to unspecified occlusion or stenosis of basilar artery (principal); I69.320 Aphasia following cerebral infarction; I69.351 Hemiplegia and hemiparesis following cerebral infarction affecting right dominant side
CPT/HCPCS: 36415; 80048

== ENCOUNTER → 2019-12-12 11:36 | Outpatient (REF) | payer MEDICARE, SELFPAY | LOC: OLS.ACW100 11:36 | PROVIDERS: Visit Provider Internal Medicine | DX: Z03.818 Encounter for observation for suspected exposure to other biological agents ruled out (principal) | CPT/HCPCS: 87635; U0003 ==

== ENCOUNTER → 2019-12-18 12:17 | Outpatient (REF) | payer MEDICARE, SELFPAY | LOC: OLS.ACW100 12:17 | PROVIDERS: Referring Provider Internal Medicine; Visit Provider Internal Medicine | DX: Z03.818 Encounter for observation for suspected exposure to other biological agents ruled out (principal) | CPT/HCPCS: 87635; U0003 ==

== ENCOUNTER → 2019-12-22 04:00 | Outpatient (REF) | payer MEDICARE, SELFPAY ==
[2019-12-22 08:54] LABS: Anion Gap 9 (5-15); BUN 22 mg/dL (7-18); BUN/Creat Ratio 33.6 RATIO (10-20); Calcium,Total 8.9 mg/dL (8.5-10.1); Chloride 101 mmol/L (98-107); Creatinine, Serum 0.65 mg/dL (0.55-1.02); EST Glomerular Filtration Rate 93 mL/min (>60); Est Glom Filt Rate - Afr Amer 112 mL/min (>60); Glucose 92 mg/dL (74-106); Potassium 3.7 mmol/L (3.5-5.1); Sodium Level 138 mmol/L (136-145)
== END ==
LOC: OLS.ACW100 04:00
PROVIDERS: Referring Provider Internal Medicine; Visit Provider Internal Medicine
DX: I63.22 Cerebral infarction due to unspecified occlusion or stenosis of basilar artery (principal); I69.320 Aphasia following cerebral infarction; I69.351 Hemiplegia and hemiparesis following cerebral infarction affecting right dominant side
CPT/HCPCS: 36415; 80048

== ENCOUNTER → 2020-02-04 14:42 | Outpatient (REF) | payer MEDICARE, SELFPAY | LOC: OLS.ACW100 14:42 | PROVIDERS: Referring Provider Family Medicine; Visit Provider Family Medicine | DX: Z03.818 Encounter for observation for suspected exposure to other biological agents ruled out (principal) | CPT/HCPCS: 87635; U0003 ==

== ENCOUNTER → 2020-03-22 05:00 | Outpatient (REF) | payer MEDICARE, SELFPAY ==
[2020-03-22 08:10] LABS: ALB/GLOB Ratio 0.8 RATIO (0.9-2.4); AST(SGOT) 20 U/L (15-37); Alanine Aminotransfer ALT/SGPT 31 U/L (13-56); Albumin, Serum 2.9 g/dL (3.2-5.0); Alkaline Phosphatase 130 U/L (45-117); Anion Gap 9 (5-15); BUN 24 mg/dL (7-18); BUN/Creat Ratio 46.7 RATIO (10-20); Calcium,Total 8.8 mg/dL (8.5-10.1); Chloride 105 mmol/L (98-107); Creatinine, Serum 0.51 mg/dL (0.55-1.02); EST Glomerular Filtration Rate 122 mL/min (>60); Est Glom Filt Rate - Afr Amer 148 mL/min (>60); Globulin 3.8 g/dL (2.2-4.2); Glucose 93 mg/dL (74-106); Potassium 3.7 mmol/L (3.5-5.1); Protein, Total 6.7 g/dL (6.4-8.2); Sodium Level 139 mmol/L (136-145)
== END ==
LOC: OLS.ACW300 05:00
PROVIDERS: Referring Provider Family Medicine; Visit Provider Family Medicine
DX: I63.22 Cerebral infarction due to unspecified occlusion or stenosis of basilar artery (principal); J18.9 Pneumonia, unspecified organism; I69.320 Aphasia following cerebral infarction; I69.351 Hemiplegia and hemiparesis following cerebral infarction affecting right dominant side
CPT/HCPCS: 36415; 80053

== ENCOUNTER → 2020-05-04 05:00 | Outpatient (REF) | payer MEDICARE, SELFPAY ==
[2020-05-04 08:16] LABS: ALB/GLOB Ratio 0.8 RATIO (0.9-2.4); AST(SGOT) 14 U/L (15-37); Alanine Aminotransfer ALT/SGPT 23 U/L (13-56); Albumin, Serum 2.9 g/dL (3.2-5.0); Alkaline Phosphatase 137 U/L (45-117); Anion Gap 4 (5-15); BUN 24 mg/dL (7-18); BUN/Creat Ratio 42.4 RATIO (10-20); Calcium,Total 8.9 mg/dL (8.5-10.1); Chloride 107 mmol/L (98-107); Creatinine, Serum 0.57 mg/dL (0.55-1.02); EST Glomerular Filtration Rate 109 mL/min (>60); Est Glom Filt Rate - Afr Amer 132 mL/min (>60); Globulin 3.8 g/dL (2.2-4.2); Glucose 93 mg/dL (74-106); Potassium 3.6 mmol/L (3.5-5.1); Protein, Total 6.7 g/dL (6.4-8.2); Sodium Level 140 mmol/L (136-145); Valproic Acid (Depakene) Level < 3 ug/mL (50-100)
== END ==
LOC: OLS.ACW300 05:00
PROVIDERS: Referring Provider Family Medicine; Visit Provider Family Medicine
DX: I63.22 Cerebral infarction due to unspecified occlusion or stenosis of basilar artery (principal); J18.9 Pneumonia, unspecified organism; I69.320 Aphasia following cerebral infarction; I69.351 Hemiplegia and hemiparesis following cerebral infarction affecting right dominant side
CPT/HCPCS: 36415; 80053; 80164

== ENCOUNTER → 2020-05-27 05:00 | Outpatient (REF) | payer MEDICARE, SELFPAY ==
[2020-05-27 07:59] LABS: Valproic Acid (Depakene) Level < 3 ug/mL (50-100)
== END ==
LOC: OLS.ACW300 05:00
PROVIDERS: Visit Provider Family Medicine
DX: I63.22 Cerebral infarction due to unspecified occlusion or stenosis of basilar artery (principal); J18.9 Pneumonia, unspecified organism; I69.320 Aphasia following cerebral infarction; I69.351 Hemiplegia and hemiparesis following cerebral infarction affecting right dominant side
CPT/HCPCS: 36415; 80164

== ENCOUNTER → 2020-08-26 05:00 | Outpatient (REF) | payer MEDICARE, SELFPAY ==
[2020-08-26 09:22] LABS: Valproic Acid (Depakene) Level 18 ug/mL (50-100)
== END ==
LOC: OLS.ACW300 05:00
PROVIDERS: Referring Provider Family Medicine; Visit Provider Family Medicine
DX: I63.22 Cerebral infarction due to unspecified occlusion or stenosis of basilar artery (principal); J18.9 Pneumonia, unspecified organism; I69.320 Aphasia following cerebral infarction; I69.351 Hemiplegia and hemiparesis following cerebral infarction affecting right dominant side
CPT/HCPCS: 36415; 80164

== ENCOUNTER → 2020-11-05 05:00 | Outpatient (REF) | payer MEDICARE, SELFPAY ==
[2020-11-05 09:06] LABS: AST(SGOT) 19 U/L (15-37); Alanine Aminotransfer ALT/SGPT 33 U/L (13-56); Albumin, Serum 2.6 g/dL (3.2-5.0); Alkaline Phosphatase 144 U/L (45-117); Bilirubin, Direct 0.05 mg/dL (0.00-0.30); Cholesterol 239 mg/dL (200); Globulin 4.3 g/dL (2.2-4.2); High Density Lipoprotein 30 mg/dL; Protein, Total 6.9 g/dL (6.4-8.2); Triglycerides 195 mg/dL; Very Low Density Lipoprotein 39 mg/dL (5-40)
== END ==
LOC: OLS.ACW300 05:00
PROVIDERS: Visit Provider Family Medicine
DX: I63.22 Cerebral infarction due to unspecified occlusion or stenosis of basilar artery (principal); J18.9 Pneumonia, unspecified organism; I69.320 Aphasia following cerebral infarction; I69.351 Hemiplegia and hemiparesis following cerebral infarction affecting right dominant side; I10 Essential (primary) hypertension; D50.9 Iron deficiency anemia, unspecified; H40.9 Unspecified glaucoma; F32.9 Major depressive disorder, single episode, unspecified; M62.81 Muscle weakness (generalized); Z93.1 Gastrostomy status
CPT/HCPCS: 36415; 80061; 80076

== ENCOUNTER → 2020-11-26 05:00 | Outpatient (REF) | payer MEDICARE, SELFPAY ==
[2020-11-26 10:07] LABS: Valproic Acid (Depakene) Level 24 ug/mL (50-100)
== END ==
LOC: OLS.ACW300 05:00
PROVIDERS: Visit Provider Family Medicine
DX: I63.22 Cerebral infarction due to unspecified occlusion or stenosis of basilar artery (principal); J18.9 Pneumonia, unspecified organism; I69.320 Aphasia following cerebral infarction; I69.351 Hemiplegia and hemiparesis following cerebral infarction affecting right dominant side
CPT/HCPCS: 36415; 80164

== ENCOUNTER → 2021-02-24 05:00 | Outpatient (REF) | payer MEDICARE, SELFPAY ==
[2021-02-24 09:02] LABS: Valproic Acid (Depakene) Level 26 ug/mL (50-100)
== END ==
LOC: OLS.ACW300 05:00
PROVIDERS: Visit Provider Family Medicine
DX: I63.22 Cerebral infarction due to unspecified occlusion or stenosis of basilar artery (principal); F01.51 Vascular dementia, unspecified severity, with behavioral disturbance; J18.9 Pneumonia, unspecified organism; I69.320 Aphasia following cerebral infarction
CPT/HCPCS: 36415; 80164

== ENCOUNTER 2021-02-28 05:00 | Outpatient (REF) | payer MEDICARE, SELFPAY ==
[2021-02-28 10:24] LABS: Valproic Acid (Depakene) Level 10 ug/mL (50-100)
== END 2021-02-28 23:59 | disposition home or self-care (01) ==
LOC: OLS.ACW300 05:00
PROVIDERS: Visit Provider Family Medicine
DX: I69.351 Hemiplegia and hemiparesis following cerebral infarction affecting right dominant side (principal); F01.51 Vascular dementia, unspecified severity, with behavioral disturbance; I63.22 Cerebral infarction due to unspecified occlusion or stenosis of basilar artery; I10 Essential (primary) hypertension; J18.9 Pneumonia, unspecified organism; I69.320 Aphasia following cerebral infarction
CPT/HCPCS: 36415; 80164

== ENCOUNTER → 2021-05-30 | Outpatient (REF) | payer MEDICARE, SELFPAY ==
[2021-05-30 10:40] LABS: Valproic Acid (Depakene) Level 27 ug/mL (50-100)
== END | disposition home or self-care (01) ==
LOC: OLS.ACW300 04:00
PROVIDERS: Referring Provider Family Medicine; Visit Provider Family Medicine
DX: I63.22 Cerebral infarction due to unspecified occlusion or stenosis of basilar artery (principal); F01.51 Vascular dementia, unspecified severity, with behavioral disturbance; J18.9 Pneumonia, unspecified organism; I69.320 Aphasia following cerebral infarction
CPT/HCPCS: 36415; 80164